=== PATIENT | male | born 1975 | race Caucasian/White ===

== ENCOUNTER 2017-08-10 19:42 | Emergency (ER) | payer OTHER, SELFPAY ==
[2017-08-10 21:59] LABS: Absolute Lymphocytes (CBC) 2.3 K/uL (0.7-4.9); Absolute Monocytes 0.8 K/uL (0.1-1.3); Absolute Neutrophil 3.9 K/uL (1.8-8.0); Basophils % 0.8 % (0-1.3); Eosinophils % 0.9 % (0-4.4); Hematocrit 40.5 % (39.6-49.0); Lymphocytes % 32.3 % (15.3-44.8); MCH 30.2 pg (27.0-35.0); MCV 85.3 fL (80-100); MPV 9.1 fL (7.6-11.3); Monocytes % 11.1 % (3.3-12.3); RBC Red Blood Cell Count 4.74 M/uL (4.33-5.43)
[2017-08-10 22:06] LABS: Potassium 3.9 mEq/L (3.6-5.0)
[2017-08-10] MEDS ORDERED: CLINDAMYCIN 600MG/D5W 600 MG/50 ML BAG IV ONE (22:09)
--- NOTE | 2017-08-10 22:31 | EDPHYS ---
Physician Documentation [facility] Name: Fer Daugherty Jr Age: 41 yrs Sex: Male : 1975 Arrival Date: 08/10/2017 Time: 19:54 Bed 6 Private MD: None, None ED Physician Benny Noe HPI: 08/11 06:13 This 41 yrs old Male presents to ER via Ambulatory with complaints of tw4 Infections to left elbow. 06:13 The patient presents with cellulitis of the left elbow and palmar aspect of left tw4 forearm. Description: The affected area is moderate sized, confluent. Onset: The symptoms/episode began/occurred today. Possible cause(s): unknown. Associated signs and symptoms: The patient has no apparent associated signs or symptoms. Modifying factors: the symptoms are alleviated by nothing, the symptoms are aggravated by nothing. Severity of symptoms: At their worst the symptoms were moderate, in the emergency department the symptoms are unchanged. The patient has not experienced similar symptoms in the past. Historical: - Allergies: 08/10 19:58 Morphine; fc - Home Meds: 19:58 metformin 1,000 mg Oral tab 1 tab 2 times per day [Active]; fc - PMHx: 19:58 Diabetes - NIDDM; fc - PSHx: 19:58 ankle surg; hip surg; right shoulder surg; right clavical surg; Appendectomy; fc - Immunization history:: Last tetanus immunization: up to date. - Social history:: Smoking status: Patient/guardian denies using tobacco, Patient uses alcohol, on a daily basis. Patient/guardian denies using street drugs. - Ebola Screening: : Patient negative for fever greater than or equal to 101.5 degrees Fahrenheit, and additional compatible Ebola Virus Disease symptoms Patient denies exposure to infectious person Patient denies travel to an Ebola-affected area in the 21 days before illness onset. ROS: 08/11 06:13 Constitutional: Negative for fever, chills, and weight loss, Cardiovascular: Negative tw4 for chest pain, palpitations, and edema, Respiratory: Negative for shortness of breath, cough, wheezing, and pleuritic chest pain, Abdomen/GI: Negative for abdominal pain, nausea, vomiting, diarrhea, and constipation. Neuro: Negative for headache, weakness, numbness, tingling, and seizure. MS/extremity: Positive for erythema, pain, swelling. Exam: 06:13 Constitutional: This is a well developed, well nourished patient who is awake, alert, tw4 and in no acute distress. Chest/axilla: Normal chest wall appearance and motion. Nontender with no deformity. No lesions are appreciated. Cardiovascular: Regular rate and rhythm with a normal S1 and S2. No gallops, murmurs, or rubs. Normal PMI, no JVD. No pulse deficits. Respiratory: Lungs have equal breath sounds bilaterally, clear to auscultation and percussion. No rales, rhonchi or wheezes noted. No increased work of breathing, no retractions or nasal flaring. Abdomen/GI: Soft, non-tender, with normal bowel sounds. No distension or tympany. No guarding or rebound. No evidence of tenderness throughout. 06:13 Musculoskeletal/extremity: Extremities: erythema, pain, swelling, tenderness, ROM: no acute changes, Circulation is intact in all extremities. Vital Signs: 08/10 19:58 BP 140 / 85; Pulse 67; Resp 18; Temp 98(O); Pulse Ox 98% on R/A; Weight 112.49 kg (R); fc Height 6 ft. 2 in. (187.96 cm) (R); Pain 5/10; 21:30 BP 112 / 64; Pulse 65; Resp 16; Pulse Ox 98% on R/A; lp1 22:49 BP 124 / 78; Pulse 65; Resp 16; Pulse Ox 98% on R/A; lp1 22:53 BP 124 / 78; Pulse 65; Resp 18; Temp 98; Pulse Ox 98% on R/A; ak1 19:58 Body Mass Index 31.84 (112.49 kg, 187.96 cm) MDM: 20:49 Patient medically screened. tw4 08/11 06:13 Differential diagnosis: cellulitis. Data reviewed: vital signs, nurses notes. tw4 Counseling: I had a detailed discussion with the patient and/or guardian regarding: the historical points, exam findings, and any diagnostic results supporting the discharge/admit diagnosis. Special discussion: I discussed with the patient/guardian in detail that at this point there is no indication for admission to the hospital. It is understood, however, that if the symptoms persist or worsen the patient needs to return immediately for re-evaluation. 08/10 21:25 Order name: Basic Metabolic Panel tw4 08/10 21:25 Order name: CBC with Diff 4 08/10 21:25 Order name: Lactate 4 08/10 21:25 Order name: Accucheck; Complete Time: 21:58 tw4 08/10 21:25 Order name: Cardiac monitoring; Complete Time: 21:58 tw4 08/10 21:25 Order name: IV Saline Lock - Large Bore; Complete Time: 21:58 tw4 08/10 21:25 Order name: Labs collected and sent; Complete Time: 21:58 tw4 08/10 21:25 Order name: O2 Per Protocol; Complete Time: 21:29 tw4 08/10 21:25 Order name: O2 Sat Monitoring; Complete Time: :29 tw4 Administered Medications: 08/10 22:12 Drug: Cleocin 600 mg Route: IVPB; Infused Over: 30 mins; Site: right hand; lp1 22:53 Follow up: IV Status: Completed infusion ak1 Point of Care Testing: Blood Glucose: 21:46 Blood Glucose: 242 mg/dL; lp1 Ranges: Critical Glucose Levels:Adult <50 mg/dl or >400 mg/dl <40 mg/dl or >180 mg/dl Disposition: 08/10/17 22:31 Discharged to Home. Impression: Cellulitis of left upper limb. - Condition is Stable. - Discharge Instructions: Cellulitis, [id number]. - Prescriptions for Cleocin 300 mg Oral Capsule - take 1 capsule by ORAL route every 6 hours for 10 days; 40 capsule. - Medication Reconciliation Form, Thank You Letter, Antibiotic Education, Prescription Opioid Use form. - Follow up: Private Physician; When: As needed; Reason: Recheck today's complaints, Continuance of care, Re-evaluation by your physician. - Problem is new. - Symptoms have improved. Signatures: Dispatcher [employer] EDMS Janice Pizano RN Olinda Persaud RN RN lp1 Karen Valentino RN RN ak1 Benny Noe MD MD tw4 Corrections: (The following items were deleted from the chart) 21:29 21:25 EKG - Nurse/Tech ordered. tw4 lp1 21:48 21:25 AMYLASE, SERUM+C.LAB.BRZ ordered. EDMS EDMS 21:48 21:25 C-REACTIVE PROTEIN+C.LAB.BRZ ordered. EDMS EDMS 21:48 21:25 CKMB+C.LAB.BRZ ordered. EDMS EDMS 21:48 21:25 CREATINE PHOSPHOKINASE+C.LAB.BRZ ordered. EDMS EDMS 21:48 21:25 HEPATIC FUNCTION+C.LAB.BRZ ordered. EDMS EDMS 21:48 21:25 LIPASE+C.LAB.BRZ ordered. EDMS EDMS 21:48 21:25 TROPONIN (EMERG DEPT USE ONLY)+C.LAB.BRZ ordered. EDMS EDMS 21:49 21:25 BNP+C.LAB.BRZ ordered. EDMS EDMS 21:49 21:25 WESTERGREN SEDRATE+H.LAB.BRZ ordered. EDMS EDMS 22:48 21:25 Urine Dipstick-Ancillary ordered. tw4 lp1 23:12 22:31 08/10/2017 22:31 Discharged to Home. Impression: Cellulitis of left upper limb. ak1 Condition is Stable. Forms are Medication Reconciliation Form, Thank You Letter, Antibiotic Education, Prescription Opioid Use. Follow up: Private Physician; When: As needed; Reason: Recheck today's complaints, Continuance of care, Re-evaluation by your physician. Problem is new. Symptoms have improved. tw4
--- NOTE | 2017-08-10 22:31 | ER ---
Nurse's Notes [facility] Name: Fer Daugherty Jr Age: 41 yrs Sex: Male : 1975 Arrival Date: 08/10/2017 Time: 19:54 Bed 6 Private MD: None, None Diagnosis: Cellulitis of left upper limb Presentation: 08/10 19:55 Presenting complaint: Patient states: that he has swelling and pain to left elbow that fc started 1 week ago. Now he has noticed a few pustules . Transition of care: patient was not received from another setting of care. Onset of symptoms was August 03, 2016. Risk Assessment: Do you want to hurt yourself or someone else? Patient reports no desire to harm self or others. Care prior to arrival: None. 19:55 Method Of Arrival: Ambulatory 19:55 Acuity: MARILY 4 fc 22:49 Initial Sepsis Screen: Does the patient meet any 2 criteria? No. Patient's initial lp1 sepsis screen is negative. Does the patient have a suspected source of infection? No. Patient's initial sepsis screen is negative. Triage Assessment: 20:00 General: Appears uncomfortable, well groomed, Behavior is calm, cooperative, fc appropriate for age. Pain: Complains of pain in left elbow Pain currently is 5 out of 10 on a pain scale. at worst was 10 out of 10 on a pain scale. Quality of pain is described as aching, pressure, throbbing, Pain began 1 week ago Is continuous, Aggravated by increased activity, repositioning, touching area. EENT: No deficits noted. Neuro: Level of Consciousness is awake, alert, obeys commands, Oriented to person, place, time, situation. Cardiovascular: No deficits noted. Respiratory: No deficits noted. GI: No deficits noted. : No deficits noted. Derm: Skin is pink, warm \T\ dry. Abscess located on left elbow is hot to touch, is red, is raised. Musculoskeletal: Circulation, motion, and sensation intact. Capillary refill < 3 seconds, Range of motion: intact in all extremities, Swelling present in left elbow Reports pain in left elbow. Historical: - Allergies: 19:58 Morphine; fc - Home Meds: 19:58 metformin 1,000 mg Oral tab 1 tab 2 times per day [Active]; fc - PMHx: 19:58 Diabetes - NIDDM; fc - PSHx: 19:58 ankle surg; hip surg; right shoulder surg; right clavical surg; Appendectomy; fc - Immunization history:: Last tetanus immunization: up to date. - Social history:: Smoking status: Patient/guardian denies using tobacco, Patient uses alcohol, on a daily basis. Patient/guardian denies using street drugs. - Ebola Screening: : Patient negative for fever greater than or equal to 101.5 degrees Fahrenheit, and additional compatible Ebola Virus Disease symptoms Patient denies exposure to infectious person Patient denies travel to an Ebola-affected area in the 21 days before illness onset. Screenin:49 Abuse screen: Denies threats or abuse. Denies injuries from another. Nutritional lp1 screening: No deficits noted. Tuberculosis screening: No symptoms or risk factors identified. Fall Risk None identified. Assessment: 21:46 General: Appears in no apparent distress. Behavior is calm, cooperative, appropriate lp1 for age. Pain: Complains of pain in left elbow Pain currently is 7 out of 10 on a pain scale. Aggravated by movement. Neuro: Level of Consciousness is awake, alert, obeys commands, Oriented to person, place, time, situation. Cardiovascular: Patient's skin is warm and dry. Respiratory: Respiratory effort is even, unlabored. GI: No signs and/or symptoms were reported involving the gastrointestinal system. : No signs and/or symptoms were reported regarding the genitourinary system. EENT: No signs and/or symptoms were reported regarding the EENT system. Derm: Wound noted Wound is Redness, swelling to left elbow. Musculoskeletal: Circulation, motion, and sensation intact. 22:49 Reassessment: Patient appears in no apparent distress at this time. No changes from lp1 previously documented assessment. Patient and/or family updated on plan of care and expected duration. Pain level reassessed. Vital Signs: 19:58 BP 140 / 85; Pulse 67; Resp 18; Temp 98(O); Pulse Ox 98% on R/A; Weight 112.49 kg (R); Height 6 ft. 2 in. (187.96 cm) (R); Pain 5/10; 21:30 BP 112 / 64; Pulse 65; Resp 16; Pulse Ox 98% on R/A; lp1 22:49 BP 124 / 78; Pulse 65; Resp 16; Pulse Ox 98% on R/A; lp1 22:53 BP 124 / 78; Pulse 65; Resp 18; Temp 98; Pulse Ox 98% on R/A; ak1 19:58 Body Mass Index 31.84 (112.49 kg, 187.96 cm) ED Course: 19:54 Patient arrived in ED. 19:55 None, None is Private Physician. 19:56 Triage completed. 20:00 Arm band placed on Patient placed in waiting room, Patient notified of wait time. 20:49 Benny Noe MD is Attending Physician. tw4 21:17 Olinda Waller, RN is Primary Nurse. lp1 21:40 Inserted saline lock: 22 gauge in right hand, using aseptic technique. Blood collected. lp1 21:59 Patient has correct armband on for positive identification. Pulse ox on. NIBP on. lp1 22:50 No provider procedures requiring assistance completed. lp1 23:07 IV discontinued, intact, bleeding controlled, No redness/swelling at site. Pressure ak1 dressing applied. Administered Medications: 22:12 Drug: Cleocin 600 mg Route: IVPB; Infused Over: 30 mins; Site: right hand; lp1 22:53 Follow up: IV Status: Completed infusion ak1 Point of Care Testing: Blood Glucose: 21:46 Blood Glucose: 242 mg/dL; lp1 Ranges: Outcome: 22:31 Discharge ordered by . tw4 23:07 Discharged to home ambulatory. ak1 23:07 Condition: good 23:07 Discharge instructions given to patient, Instructed on discharge instructions, follow up and referral plans. no drinking with medication, no driving heavy equipment, medication usage, wound care, Demonstrated understanding of instructions, follow-up care, medications, wound care, Prescriptions given X 1. 23:12 Patient left the ED. ak1 Signatures: Janice Pizano RN MANE Olinda Waller, RN RN 1 Karen Valentino RN RN ak1 Benny Noe MD MD 4
== END 2017-08-10 23:12 | disposition home or self-care (01) ==
LOC: ER 19:42
DX: L03.114 Cellulitis of left upper limb (principal); E11.9 Type 2 diabetes mellitus without complications; Z88.6 Allergy status to analgesic agent
CPT/HCPCS: 36415; 80048; 82962; 83605; 85025; 96365; 99284

== ENCOUNTER 2017-12-03 23:12 | Emergency (ER) | payer SELFPAY ==
[2017-12-03] MEDS ORDERED: LIDOCAINE 1% MPF 30 ML VIAL ONE (23:49)
[2017-12-03] MEDS ORDERED: KETOROLAC 30 MG/ML INJ ONE (23:53)
[2017-12-04] LABS: Absolute Lymphocytes (CBC) 1.7 K/uL (0.7-4.9); Absolute Monocytes 0.8 K/uL (0.1-1.3); Absolute Neutrophil 3.9 K/uL (1.8-8.0); Basophils % 0.3 % (0-1.3); Eosinophils % 0.6 % (0-4.4); Hematocrit 39.5 % (39.6-49.0); Lymphocytes % 26.5 % (15.3-44.8); MCH 31.4 pg (27.0-35.0); MCV 89.6 fL (80-100); Monocytes % 12.6 % (3.3-12.3); RBC Red Blood Cell Count 4.41 M/uL (4.33-5.43)
[2017-12-04 00:22] LABS: Potassium 3.9 mmol/L (3.5-5.1)
[2017-12-04] MEDS ORDERED: INSULIN -REGULAR HUMAN 50 UNIT/0.5 ML ML ONE (00:46)
[2017-12-04] MEDS ORDERED: BUPIVACAINE 0.5% PF 10 ML VIAL ONE (00:49)
[2017-12-04] MEDS ORDERED: HYDROCODONE/APAP 7.5/325 MG TAB ONE (02:29)
[2017-12-04] MEDS ORDERED: CLINDAMYCIN 900MG/D5W 900 MG/50 ML BAG IV ONE (02:30)
[2017-12-04] MEDS ORDERED: SMZ./TMP. 800/160 MG TABLET ONE (02:30)
--- NOTE | 2017-12-04 02:35 | EDPHYS ---
Physician Documentation [facility] Name: Fer Daugherty Jr Age: 42 yrs Sex: Male : 1975 Arrival Date: 12/03/2017 Time: 23:15 Bed 18 Private MD: ED Physician Bharat Aaron HPI: 12/03 23:35 This 42 yrs old Male presents to ER via Ambulatory with complaints of cp INFECTION IN LEG. 23:35 The patient presents with an abscess, small, swelling, tenderness. The complaints cp affect the lateral aspect of left calf. Context: resulted from possible ant bite. Onset: The symptoms/episode began/occurred 2 day(s) ago. Associated signs and symptoms: Pertinent positives: calf tenderness, swelling, warmth, Pertinent negatives fever, numbness. Treatment prior to arrival includes: prescription medications, oral Keflex. Patient reports being prescribed Keflex today and taking 2 doses. Severity of symptoms: in the emergency department the symptoms are unchanged. Historical: - Allergies: 23:29 Morphine; tl2 - Home Meds: 23:29 metformin 1,000 mg Oral tab 1 tab 2 times per day [Active]; tl2 - PMHx: 23:29 Diabetes - NIDDM; tl2 - PSHx: 23:29 Appendectomy; tl2 - Immunization history:: Adult Immunizations up to date. - Social history:: Smoking status: Patient/guardian denies using tobacco. - Ebola Screening: : No symptoms or risks identified at this time. ROS: 23:40 Constitutional: Negative for body aches, chills, fever, poor PO intake. cp 23:40 Eyes: Negative for injury, pain, redness, and discharge. cp 23:40 ENT: Negative for drainage from ear(s), ear pain, sore throat, difficulty swallowing, difficulty handling secretions. 23:40 Cardiovascular: Negative for chest pain, edema, palpitations. 23:40 Respiratory: Negative for cough, shortness of breath, wheezing. 23:40 Abdomen/GI: Negative for abdominal pain, nausea, vomiting, and diarrhea, black/tarry stool, rectal bleeding. 23:40 Skin: Positive for abscess, cellulitis, of the lateral aspect of left calf. 23:40 Neuro: Negative for altered mental status, headache, weakness. 23:40 All other systems are negative. Exam: 23:45 Constitutional: The patient appears in no acute distress, alert, awake, cp non-diaphoretic, non-toxic, well developed, well nourished. 23:45 Head/Face: Normocephalic, atraumatic. cp 23:45 Eyes: Periorbital structures: appear normal, Conjunctiva: normal, no exudate, no injection, Sclera: no appreciated abnormality, Lids and lashes: appear normal, bilaterally. 23:45 ENT: External ear(s): are unremarkable, Nose: is normal, Mouth: Lips: moist, Oral mucosa: pink and intact, moist, Posterior pharynx: is normal, airway is patent, no erythema, no exudate. 23:45 Chest/axilla: Inspection: normal, Palpation: is normal, no crepitus, no tenderness. 23:45 Cardiovascular: Rate: normal, Rhythm: regular, Edema: is not appreciated. 23:45 Respiratory: the patient does not display signs of respiratory distress, Respirations: normal, no use of accessory muscles, no retractions, no splinting, no tachypnea, labored breathing, is not present, Breath sounds: are clear throughout, no decreased breath sounds, no stridor, no wheezing. 23:45 Abdomen/GI: Inspection: abdomen appears normal, Palpation: abdomen is soft and non-tender, in all quadrants. 23:45 Skin: abscess, that is small, with surrounding cellulitis, that is moderate. 23:45 Neuro: Orientation: to person, place \T\ time. Mentation: lucid, able to follow commands, Cerebellar function: is grossly normal, Motor: moves all fours, strength is normal, Sensation: no obvious gross deficits. Vital Signs: 23:29 BP 162 / 96; Pulse 81; Resp 18; Temp 97.9(O); Pulse Ox 95% on R/A; Weight 113.4 kg; tl2 Height 6 ft. 2 in. (187.96 cm); Pain 10; 12/04 00:23 BP 145 / 88; Pulse 83; Resp 18; Pulse Ox 96% on R/A; tl2 01:56 BP 131 / 78; Pulse 78; Resp 18; Pulse Ox 98% on R/A; tl2 03:26 BP 108 / 76; Pulse 73; Resp 20; Pulse Ox 99% on R/A; tl2 12/03 23:29 Body Mass Index 32.10 (113.40 kg, 187.96 cm) tl2 Procedures: 02:30 I \T\ D: Incision and drainage was performed for an abscess of the lateral aspect of left cp calf Prepped with Betadine, Anesthetized with 5 ccs of 50/50 mixture 1% lidocaine w/o epi and 0.5% marcaine. Incised with #11 blade. Drained small amount purulent fluid. Packed with iodoform gauze, Dressing: sterile 4x4 gauze, the patient tolerated the procedure well. MDM: 12/03 23:25 Patient medically screened. 12/04 00:00 Differential diagnosis: abscess, cellulitis, insect bite. 02:33 Data reviewed: vital signs, nurses notes, lab test result(s), radiologic studies, cp ultrasound, and as a result, I will discharge patient. 02:33 Counseling: I had a detailed discussion with the patient and/or guardian regarding: the cp historical points, exam findings, and any diagnostic results supporting the discharge/admit diagnosis, lab results, radiology results, the need for outpatient follow up, a family practitioner, to return to the emergency department if symptoms worsen or persist or if there are any questions or concerns that arise at home. Response to treatment: the patient's symptoms have markedly improved after treatment, and as a result, I will discharge patient. 12/03 23:34 Order name: CBC with Diff; Complete Time: 00:16 12/04 00:16 Interpretation: Normal except: HCT 39.5; MCV 89.6; MN% 12.6. 12/03 23:34 Order name: BMP; Complete Time: 00:27 12/03 23:34 Order name: Wound Culture 12/03 23:34 Order name: US Extremity Venous Unilateral Ltd; Complete Time: 01:30 12/05 01:30 Interpretation: Report reviewed. 12/03 23:34 Order name: IV; Complete Time: 23:53 cp Administered Medications: 12/03 23:53 Drug: TORadol 30 mg Route: IVP; Site: right wrist; tl2 12/04 00:30 Follow up: Response: No adverse reaction; Pain is decreased tl2 01:00 Drug: Insulin Regular Human 10 units {Co-Signature: kr2 (Crystal Briones RN).} Route: IVP; tl2 Site: right wrist; 02:11 Follow up: Response: No adverse reaction; Blood sugar is lowered tl2 02:08 Drug: Lidocaine-Epinephrine -1%: (1:100,000) 5 ml Volume: 20 ml; Route: Infiltration; tl2 02:08 Drug: Marcaine (0.5 %) 5 ml Volume: 10 ml; Route: Infiltration; tl2 02:37 Drug: Clindamycin 900 mg Route: IVPB; Infused Over: 30 mins; Site: right antecubital; tl2 03:29 Follow up: IV Status: Completed infusion; IV Intake: 50ml tl2 02:37 Drug: Hydrocodone-Acetaminophen (7.5 mg-325 mg) 1 tabs Route: PO; tl2 03:29 Follow up: Response: No adverse reaction tl2 02:37 Drug: Bactrim (160 mg-800 mg (DS) 1 tablet Route: PO; tl2 03:29 Follow up: Response: No adverse reaction tl2 Point of Care Testing: Blood Glucose: 02:11 Blood Glucose: 277 mg/dL; tl2 Ranges: Critical Glucose Levels:Adult <50 mg/dl or >400 mg/dl <40 mg/dl or >180 mg/dl Disposition: 07:15 Co-signature as Attending Physician, Bharat Aaron MD I agree with the assessment and rj plan of care. Disposition: 12/04/17 02:34 Discharged to Home. Impression: Cutaneous abscess of left lower limb, Cellulitis of left lower limb. - Condition is Stable. - Discharge Instructions: Skin Abscess, Cellulitis, Adult, Incision and Drainage. - Prescriptions for Clindamycin HCl 300 mg Oral Capsule - take 1 capsule by ORAL route every 6 hours for 10 days; 40 capsule. Tylenol- Codeine #3 300-30 mg Oral Tablet - take 2 tablets by ORAL route every 6 hours As needed; 15 tablet. Bactrim DS 800- 160 mg Oral Tablet - take 1 tablet by ORAL route every 12 hours for 10 days; 20 tablet. - Medication Reconciliation Form, Thank You Letter, Antibiotic Education, Prescription Opioid Use, Work release form form. - Follow up: Private Physician; When: 48 Hours; Reason: Wound Recheck. - Problem is new. - Symptoms have improved. Signatures: Dispatcher [employer] Bharat Medina MD MD cha Page, Corey, PA PA cp Knox, Taylor, RN RN tl2 Crystal Briones RN kr2 Corrections: (The following items were deleted from the chart) 03:30 02:34 12/04/2017 02:34 Discharged to Home. Impression: Cutaneous abscess of left lower tl2 limb; Cellulitis of left lower limb. Condition is Stable. Forms are Medication Reconciliation Form, Thank You Letter, Antibiotic Education, Prescription Opioid Use. Follow up: Private Physician; When: 48 Hours; Reason: Wound Recheck. Problem is new. Symptoms have improved. cp
--- NOTE | 2017-12-04 02:35 | ER ---
Nurse's Notes [facility] Name: Fer Daugherty Jr Age: 42 yrs Sex: Male : 1975 Arrival Date: 12/03/2017 Time: 23:15 Bed 18 Private MD: Diagnosis: Cutaneous abscess of left lower limb;Cellulitis of left lower limb Presentation: 12/03 23:24 Presenting complaint: Patient states: I noticed a bite on my left leg on Thursday and tl2 today it's red and swollen. Quarter sized abscess noted to left calf, red and warm to touch. Transition of care: patient was not received from another setting of care. Onset of symptoms was December 01, 2017. Risk Assessment: Do you want to hurt yourself or someone else? Patient reports no desire to harm self or others. Initial Sepsis Screen: Does the patient meet any 2 criteria? No. Patient's initial sepsis screen is negative. Does the patient have a suspected source of infection? No. Patient's initial sepsis screen is negative. Care prior to arrival: None. 23:24 Method Of Arrival: Ambulatory tl2 23:24 Acuity: MARILY 4 tl2 Triage Assessment: 23:29 General: Appears in no apparent distress. uncomfortable, Behavior is calm, cooperative, tl2 appropriate for age. Pain: Complains of pain in left calf Pain currently is 7 out of 10 on a pain scale. Neuro: Level of Consciousness is awake, alert, obeys commands, Oriented to person, place, time, situation. Cardiovascular: Denies chest pain. Respiratory: Airway is patent Respiratory effort is even, unlabored, Respiratory pattern is regular, symmetrical. Derm: Skin is pink, warm \T\ dry. Abscess located on left calf is nickel sized, has no drainage, is hot to touch, is red, is raised, Reports pain that is 7 out of 10 on a pain scale. Historical: - Allergies: 23:29 Morphine; tl2 - Home Meds: 23:29 metformin 1,000 mg Oral tab 1 tab 2 times per day [Active]; tl2 - PMHx: 23:29 Diabetes - NIDDM; tl2 - PSHx: 23:29 Appendectomy; tl2 - Immunization history:: Adult Immunizations up to date. - Social history:: Smoking status: Patient/guardian denies using tobacco. - Ebola Screening: : No symptoms or risks identified at this time. Screenin:32 Abuse screen: Denies threats or abuse. Nutritional screening: No deficits noted. tl2 Tuberculosis screening: No symptoms or risk factors identified. Fall Risk None identified. Assessment: 23:29 General: see triage assessment. tl2 12/04 00:30 Reassessment: Patient appears in no apparent distress at this time. Patient and/or tl2 family updated on plan of care and expected duration. Pain level reassessed. Patient is alert, oriented x 3, equal unlabored respirations, skin warm/dry/pink. 01:30 Reassessment: Patient appears in no apparent distress at this time. Patient and/or tl2 family updated on plan of care and expected duration. Pain level reassessed. Patient is alert, oriented x 3, equal unlabored respirations, skin warm/dry/pink. 02:30 Reassessment: Patient appears in no apparent distress at this time. Patient and/or tl2 family updated on plan of care and expected duration. Pain level reassessed. Patient is alert, oriented x 3, equal unlabored respirations, skin warm/dry/pink. 03:26 Reassessment: Patient appears in no apparent distress at this time. Patient and/or tl2 family updated on plan of care and expected duration. Pain level reassessed. Patient is alert, oriented x 3, equal unlabored respirations, skin warm/dry/pink. Pt verbalized understanding of discharge instructions, need for follow up and prescription usage and wound care. Vital Signs: 12/03 23:29 BP 162 / 96; Pulse 81; Resp 18; Temp 97.9(O); Pulse Ox 95% on R/A; Weight 113.4 kg; tl2 Height 6 ft. 2 in. (187.96 cm); Pain 7/10; 12/04 00:23 BP 145 / 88; Pulse 83; Resp 18; Pulse Ox 96% on R/A; tl2 01:56 BP 131 / 78; Pulse 78; Resp 18; Pulse Ox 98% on R/A; tl2 03:26 BP 108 / 76; Pulse 73; Resp 20; Pulse Ox 99% on R/A; tl2 12/03 23:29 Body Mass Index 32.10 (113.40 kg, 187.96 cm) 2 ED Course: 12/03 23:15 Patient arrived in ED. es 23:24 Abad, Hannah, MANE is Primary Nurse. tl2 23:25 Bharat Kaye PA is PHCP. cp 23:25 Bharat Aaron MD is Attending Physician. cp 23:27 Triage completed. tl2 23:29 Arm band placed on right wrist. tl2 23:32 Patient has correct armband on for positive identification. Bed in low position. Call tl2 light in reach. Side rails up X 1. 23:45 Inserted saline lock: 20 gauge in right wrist, using aseptic technique. Blood collected.tl2 12/04 00:25 Notified Nurse Practitioner and/or Physician [employer] Straightener of a critical lab result(s), fc glucose 434. 00:52 US Extremity Venous Unilateral Ltd In Process Unspecified. EDMS 02:15 Assist provider with I \T\ D: of an abscess on right abscess on calf Set up I\T\D tray. tl 2 Performed by Bharat BRADY Culture sent to lab. Wound packed. Dressing with ABD pad, Patient tolerated well. 03:26 IV discontinued, intact, bleeding controlled, No redness/swelling at site. Pressure tl2 dressing applied. Administered Medications: 12/03 23:53 Drug: TORadol 30 mg Route: IVP; Site: right wrist; tl2 12/04 00:30 Follow up: Response: No adverse reaction; Pain is decreased tl2 01:00 Drug: Insulin Regular Human 10 units {Co-Signature: kr2 (Crystal Briones RN).} Route: IVP; tl2 Site: right wrist; 02:11 Follow up: Response: No adverse reaction; Blood sugar is lowered tl2 02:08 Drug: Lidocaine-Epinephrine -1%: (1:100,000) 5 ml Volume: 20 ml; Route: Infiltration; tl2 02:08 Drug: Marcaine (0.5 %) 5 ml Volume: 10 ml; Route: Infiltration; tl2 02:37 Drug: Clindamycin 900 mg Route: IVPB; Infused Over: 30 mins; Site: right antecubital; tl2 03:29 Follow up: IV Status: Completed infusion; IV Intake: 50ml tl2 02:37 Drug: Hydrocodone-Acetaminophen (7.5 mg-325 mg) 1 tabs Route: PO; tl2 03:29 Follow up: Response: No adverse reaction tl2 02:37 Drug: Bactrim (160 mg-800 mg (DS) 1 tablet Route: PO; tl2 03:29 Follow up: Response: No adverse reaction tl2 Point of Care Testing: Blood Glucose: 02:11 Blood Glucose: 277 mg/dL; tl2 Ranges: Intake: 03:29 IV: 50ml; Total: 50ml. tl2 Outcome: 02:34 Discharge ordered by . cp 03:29 Discharged to home ambulatory, with family. tl2 03:29 Condition: stable 03:29 Discharge instructions given to patient, Instructed on discharge instructions, follow up and referral plans. medication usage, wound care, Demonstrated understanding of instructions, follow-up care, medications, wound care, Prescriptions given X 3. 03:30 Patient left the ED. tl2 Addendum: 12/07/2017 09:27 Addendum: Culture Results: Positive wound culture. No further action required. Bacteria s s sensitive to prescribed antibiotic. Signatures: Dispatcher [employer] Afua Heck Felicia, RN RN fc Smirch, Shelby, RN RN ss Page, Corey, PA PA cp Knox, Taylor, RN RN tl2 Crystal Briones RN kr2 Corrections: (The following items were deleted from the chart) 12/04 00:23 09 23:29 BP 145 / 88; Pulse 83bpm; Resp 18bpm; Pulse Ox 96% RA; tl2 tl2
[2017-12-04 03:35] VITALS: TEMP 97.9
[2017-12-04 03:39] VITALS: BP 108/76; O2SAT 99
--- NOTE | 2017-12-04 08:20 | RAD REPORT ---
EXAM DESCRIPTION: US - Extremity Venous Uni Ltd - 12/04/2017 12:54 am CLINICAL HISTORY: Left leg pain and swelling, insect bite COMPARISON: None. TECHNIQUE: Real-time sonographic evaluation of the left lower extremity deep venous system was perfo rmed. FINDINGS: Normal compressibility, flow augmentation, phasic flow and spontaneous flow are identified in the left lower extremity common femoral, superficial femoral, popliteal and posterior tibial vein s. No intraluminal filling defects seen. Soft tissues are edematous at the insect bite site there is an approximately 11 millimeter area of sl ightly diminished echogenicity. This is likely focal inflammatory tissue. This is not yet seen as a d rainable fluid collection. IMPRESSION: Approximately 11 millimeter focal inflammatory focus in the subcutaneous fatty tissues a t the site of insect bite. Surrounding edema is present. This is probably not yet a drainable fluid c ollection. No DVT.
== END 2017-12-04 03:30 | disposition home or self-care (01) ==
LOC: ER 23:12
PROC: 0J9P0ZZ Drainage of Left Lower Leg Subcutaneous Tissue and Fascia, Open Approach (ICD-10-PCS; principal; 2017-12-04)
DX: L03.116 Cellulitis of left lower limb (principal); E11.9 Type 2 diabetes mellitus without complications; Z88.5 Allergy status to narcotic agent
CPT/HCPCS: 36415; 80048; 82962; 85025; 87070; 87077; 87186; 87205; 93971; 96365; 96375; 99284

== ENCOUNTER 2017-12-05 21:33 | Observation (INO) | payer SELFPAY ==
[2017-12-05] MEDS ORDERED: NA CHLORIDE 0.9% 1,000 ML ONE (22:22)
[2017-12-05] MEDS ORDERED: FENTANYL CITR 100 MCG/2 ML ONE (22:22)
[2017-12-05 22:44] LABS: Absolute Lymphocytes (CBC) 2.1 K/uL (0.7-4.9); Absolute Monocytes 0.6 K/uL (0.1-1.3); Basophils % 0.7 % (0-1.3); Eosinophils % 1.1 % (0-4.4); Hematocrit 41.3 % (39.6-49.0); Lymphocytes % 43.9 % (15.3-44.8); MCH 31.1 pg (27.0-35.0); MCV 89.8 fL (80-100); Monocytes % 11.9 % (3.3-12.3)
[2017-12-05 22:47] LABS: Protime INR 0.85
[2017-12-05 23:26] LABS: Albumin 3.6 g/dL (3.4-5.0); Bilirubin Direct 0.1 mg/dL (0-0.2); Bilirubin Total 0.4 mg/dL (0.2-1.0); Magnesium 1.9 mg/dL (1.8-2.4); Potassium 4.3 mmol/L (3.5-5.1); Protein, Total 7.2 g/dL (6.4-8.2)
--- NOTE | 2017-12-06 00:08 | ER ---
Nurse's Notes [facility] Name: Fer Daugherty Jr Age: 42 yrs Sex: Male : 1975 Arrival Date: 12/05/2017 Time: 21:36 Bed 13 Private MD: Diagnosis: Cellulitis of left lower limb Presentation: 12/05 21:40 Presenting complaint: Patient states: Here to have packing removed from wound to left aj posterior leg that was placed 2 days ago. Transition of care: patient was not received from another setting of care. Onset of symptoms was December 03, 2017. Risk Assessment: Do you want to hurt yourself or someone else? Patient reports no desire to harm self or others. Initial Sepsis Screen: Does the patient meet any 2 criteria? No. Patient's initial sepsis screen is negative. Does the patient have a suspected source of infection? No. Patient's initial sepsis screen is negative. Care prior to arrival: None. 21:40 Method Of Arrival: Ambulatory aj 21:40 Acuity: MARILY 4 aj Triage Assessment: 21:41 General: Appears in no apparent distress. comfortable, Behavior is calm, cooperative, aj appropriate for age. Pain: Denies pain. Neuro: Level of Consciousness is awake, alert, obeys commands, Oriented to person, place, time, situation, Appropriate for age. Respiratory: Airway is patent Respiratory effort is even, unlabored, Respiratory pattern is regular, symmetrical. Derm: Skin is intact, is healthy with good turgor, Skin is pink, warm \\T\\ dry. normal, Wound noted left calf Redness and inflammation to posterior left calf. Historical: - Allergies: 21:41 Morphine; aj - Home Meds: 21:41 metformin 1,000 mg Oral tab 1 tab 2 times per day [Active]; Bactrim DS Oral [Active]; aj Tylenol #3 Oral [Active]; - PMHx: 21:41 Diabetes - NIDDM; aj - PSHx: 21:41 Appendectomy; shoulder; aj - Immunization history:: Adult Immunizations up to date. - Social history:: Smoking status: Patient/guardian denies using tobacco, Patient uses alcohol, admits to "couple of beers" a day. - Ebola Screening: : Patient negative for fever greater than or equal to 101.5 degrees Fahrenheit, and additional compatible Ebola Virus Disease symptoms Patient denies exposure to infectious person Patient denies travel to an Ebola-affected area in the 21 days before illness onset No symptoms or risks identified at this time. Screenin:00 Abuse screen: Denies threats or abuse. Nutritional screening: No deficits noted. ea Tuberculosis screening: No symptoms or risk factors identified. Fall Risk None identified. Assessment: 21:57 General: Appears in no apparent distress. Behavior is calm, cooperative, appropriate ea for age. Pain: Complains of pain in left calf Pain radiates to left leg Pain currently is 5 out of 10 on a pain scale. Quality of pain is described as pressure. Neuro: Level of Consciousness is awake, alert, obeys commands, Oriented to person, place, time, situation. Cardiovascular: Patient's skin is warm and dry. Respiratory: Airway is patent Respiratory effort is even, unlabored, Respiratory pattern is regular, symmetrical. GI: No signs and/or symptoms were reported involving the gastrointestinal system. : No signs and/or symptoms were reported regarding the genitourinary system. EENT: No signs and/or symptoms were reported regarding the EENT system. Derm: Wound noted left calf Wound is packed wound noted to left calf, area red and warm to touch. 22:30 Reassessment: Patient and/or family updated on plan of care and expected duration. Pain ea level reassessed. Patient is alert, oriented x 3, equal unlabored respirations, skin warm/dry/pink. 23:15 Reassessment: Patient and/or family updated on plan of care and expected duration. Pain ea level reassessed. Patient is alert, oriented x 3, equal unlabored respirations, skin warm/dry/pink. 12/06 00:55 Reassessment: Patient and/or family updated on plan of care and expected duration. Pain ea level reassessed. Patient is alert, oriented x 3, equal unlabored respirations, skin warm/dry/pink. 01:00 Reassessment: Patient and/or family updated on plan of care and expected duration. Pain ea level reassessed. Patient is alert, oriented x 3, equal unlabored respirations, skin warm/dry/pink. 02:14 Reassessment: Patient and/or family updated on plan of care and expected duration. Pain ea level reassessed. Patient is alert, oriented x 3, equal unlabored respirations, skin warm/dry/pink. awaiting on CT results. 03:10 Reassessment: Patient and/or family updated on plan of care and expected duration. Pain ea level reassessed. Patient is alert, oriented x 3, equal unlabored respirations, skin warm/dry/pink. Awaiting on room. 03:36 Reassessment: Patient and/or family updated on plan of care and expected duration. Pain ea level reassessed. Patient is alert, oriented x 3, equal unlabored respirations, skin warm/dry/pink. Report called to Patricia GILLIAM. Vital Signs: 12/05 21:41 BP 148 / 77; Pulse 68; Resp 17; Temp 98.2; Pulse Ox 98% on R/A; Weight 113.4 kg; Height aj 6 ft. 2 in. (187.96 cm); 21:59 BP 158 / 92; Pulse 70; Resp 18; Pulse Ox 97% on R/A; ea 22:55 BP 138 / 76; Pulse 76; Resp 18; Pulse Ox 96% on R/A; ea 23:45 BP 140 / 80; Pulse 72; Resp 18; Pulse Ox 98% ; ea 12/06 01:30 BP 138 / 73; Pulse 70; Resp 18; Pulse Ox 98% ; ea 03:30 BP 142 / 68; Pulse 68; Resp 18; Temp 98(O); Pulse Ox 98% on R/A; Pain 0/10; ea 12/05 21:41 Body Mass Index 32.10 (113.40 kg, 187.96 cm) aj ED Course: 12/05 21:36 Patient arrived in ED. ag3 21:41 Triage completed. aj 21:41 Arm band placed on right wrist. Patient placed in an exam room. aj 21:44 Marian Carver, MANE is Primary Nurse. ea 21:45 Bharat Kaye PA is PHCP. cp 21:45 Bharat Aaron MD is Attending Physician. cp 22:00 Patient has correct armband on for positive identification. Bed in low position. Call ea light in reach. 22:21 Inserted saline lock: 20 gauge in right antecubital area, using aseptic technique. ea Blood collected. 23:09 EKG done, by ED staff, reviewed by Bharat Aaron MD. ds4 12/06 00:06 Gregory Lawson MD is Hospitalizing Provider. cp 01:48 Lower Extremity W/ Cont In Process Unspecified. EDMS 02:56 Gregory Lawson MD is Hospitalizing Provider. cp 03:24 No provider procedures requiring assistance completed. Patient admitted, IV remains in ea place. Administered Medications: 12/05 22:32 Drug: fentaNYL (PF) 25 mcg Route: IVP; Site: right antecubital; ea 12/06 00:10 Follow up: Response: No adverse reaction; Marked relief of symptoms; Pain is decreased ea 12/05 22:33 Drug: NS 0.9% 1000 ml Route: IV; Rate: 1 bolus; Site: right antecubital; ea 12/06 00:30 Follow up: Response: No adverse reaction; IV Status: Completed infusion; IV Intake: ea 1000ml 00:32 Drug: vancoMYCIN 1 grams Route: IVPB; Infused Over: 2 hrs; Site: right antecubital; tl2 03:08 Follow up: Response: No adverse reaction; IV Status: Completed infusion ea 00:33 Drug: NS 0.9% 1000 ml Route: IV; Rate: 125 ml/hr; Site: right antecubital; tl2 03:23 Follow up: Response: No adverse reaction; IV Status: Infusion continued upon transfer ea 00:41 Drug: Insulin Regular Human 10 units {Co-Signature: kt (Marian Carver RN).} Route: IVP; tl2 Site: right antecubital; 02:00 Follow up: Response: No adverse reaction; Blood sugar is lowered; Blood sugar is ea lowered 220 Intake: 00:30 IV: 1000ml; Total: 1000ml. ea Outcome: 00:07 Decision to Hospitalize by Provider. cp 02:57 Decision to Hospitalize by Provider. cp 03:24 Instructed on the need for admit, Demonstrated understanding of instructions. ea 03:36 Admitted to Med/surg accompanied by nurse, room 411, Report called to Patricia GILLIAM ea 03:36 Condition: stable 03:58 Patient left the ED. ea Signatures: Dispatcher [employer] EDLaura Eagle RN RN aj Swanson, Donovan ds4 Bharat Kaye PA PA cp Knox, Taylor, RN RN tl2 Marian Carver RN RN ea Gomez, Alice ag3 Elena Antunez RN ea Corrections: (The following items were deleted from the chart) 12/05 21:43 21:41 Derm: Skin is intact, is healthy with good turgor, Skin is pink, warm \\T\\ dry. aj normal, Wound noted left calf aj
--- NOTE | 2017-12-06 00:08 | EDPHYS ---
Physician Documentation [facility] Name: Fer Daugherty Jr Age: 42 yrs Sex: Male : 1975 Arrival Date: 12/05/2017 Time: 21:36 Bed 13 Private MD: ED Physician Bharat Aaron HPI: 12/05 22:00 This 42 yrs old Male presents to ER via Ambulatory with complaints of GAUZE cp REMOVAL. 22:00 The patient presents with f/u for abscess/cellulitis. The complaints affect the lateral cp aspect of left calf. 22:00 Patient seen in ED by me 2 days ago. I\\T\\D performed and patient placed on oral cp antibiotics. Patient reports increased pain and erythema. Historical: - Allergies: 21:41 Morphine; aj - Home Meds: 21:41 metformin 1,000 mg Oral tab 1 tab 2 times per day [Active]; Bactrim DS Oral [Active]; aj Tylenol #3 Oral [Active]; - PMHx: 21:41 Diabetes - NIDDM; aj - PSHx: 21:41 Appendectomy; shoulder; aj - Immunization history:: Adult Immunizations up to date. - Social history:: Smoking status: Patient/guardian denies using tobacco, Patient uses alcohol, admits to "couple of beers" a day. - Ebola Screening: : Patient negative for fever greater than or equal to 101.5 degrees Fahrenheit, and additional compatible Ebola Virus Disease symptoms Patient denies exposure to infectious person Patient denies travel to an Ebola-affected area in the 21 days before illness onset No symptoms or risks identified at this time. ROS: 22:05 Constitutional: Negative for body aches, chills, fever, poor PO intake. cp 22:05 Eyes: Negative for injury, pain, redness, and discharge. cp 22:05 ENT: Negative for drainage from ear(s), ear pain, sore throat, difficulty swallowing, difficulty handling secretions. 22:05 Cardiovascular: Negative for chest pain, palpitations. 22:05 Respiratory: Negative for cough, shortness of breath, wheezing. 22:05 Abdomen/GI: Negative for abdominal pain, nausea, vomiting, and diarrhea. 22:05 Skin: Positive for abscess, cellulitis, erythema, of the lateral aspect of left calf. 22:05 Neuro: Negative for altered mental status, headache, weakness. 22:05 All other systems are negative. Exam: 22:12 Constitutional: The patient appears in no acute distress, alert, awake, cp non-diaphoretic, non-toxic, well developed, well nourished. 22:12 Head/Face: Normocephalic, atraumatic. cp 22:12 Eyes: Periorbital structures: appear normal, Conjunctiva: normal, no exudate, no injection, Sclera: no appreciated abnormality, Lids and lashes: appear normal, bilaterally. 22:12 ENT: External ear(s): are unremarkable, Nose: is normal, Mouth: Lips: moist, Oral mucosa: pink and intact, moist, Posterior pharynx: is normal, airway is patent, no erythema, no exudate, Voice: is normal. 22:12 Neck: ROM/movement: is normal, is supple, without pain, no range of motions limitations, no nuchal rigidity. 22:12 Chest/axilla: Inspection: normal, Palpation: is normal, no crepitus, no tenderness. 22:12 Cardiovascular: Rate: normal, Rhythm: regular. 22:12 Respiratory: the patient does not display signs of respiratory distress, Respirations: normal, no use of accessory muscles, no retractions, no splinting, no tachypnea, Breath sounds: are clear throughout, no decreased breath sounds, no stridor, no wheezing. 22:12 Abdomen/GI: Inspection: abdomen appears normal, Palpation: abdomen is soft and non-tender, in all quadrants. 22:12 Back: pain, is absent, ROM is normal. 22:12 Skin: cellulitis, that is moderate, irregular, on the lateral aspect of left calf, Wound recheck: Abscess: the wound has worsened, more erythema, more pain, the packing is in place. Vital Signs: 21:41 BP 148 / 77; Pulse 68; Resp 17; Temp 98.2; Pulse Ox 98% on R/A; Weight 113.4 kg; Height aj 6 ft. 2 in. (187.96 cm); 21:59 BP 158 / 92; Pulse 70; Resp 18; Pulse Ox 97% on R/A; ea 22:55 BP 138 / 76; Pulse 76; Resp 18; Pulse Ox 96% on R/A; ea 23:45 BP 140 / 80; Pulse 72; Resp 18; Pulse Ox 98% ; ea 09/30 01:30 BP 138 / 73; Pulse 70; Resp 18; Pulse Ox 98% ; ea 03:30 BP 142 / 68; Pulse 68; Resp 18; Temp 98(O); Pulse Ox 98% on R/A; Pain 0/10; ea 12/05 21:41 Body Mass Index 32.10 (113.40 kg, 187.96 cm) aj MDM: 12/05 21:46 Patient medically screened. 23:00 Differential diagnosis: sepsis, MRSA, fasciitis. 12/06 00:19 ED course: VSS. DR Lawson requests CT scan of left lower extremity before patient is to be admitted. 02:55 Data reviewed: vital signs, nurses notes, lab test result(s), radiologic studies, CT cp scan, and as a result, I will admit patient. 02:55 Counseling: I had a detailed discussion with the patient and/or guardian regarding: the historical points, exam findings, and any diagnostic results supporting the discharge/admit diagnosis, lab results, radiology results, the need for further work-up and treatment in the hospital. Response to treatment: the patient's symptoms have mildly improved after treatment. 12/05 22:11 Order name: Basic Metabolic Panel; Complete Time: 23:32 12/05 22:11 Order name: CBC with Diff; Complete Time: 22:46 12/05 22:46 Interpretation: Reviewed. 12/05 22:11 Order name: LFT's; Complete Time: 23:32 12/05 22:11 Order name: Magnesium; Complete Time: 23:32 12/05 22:11 Order name: PT-INR; Complete Time: 23:16 12/05 22:46 Order name: Blood Culture Adult (2) 12/05 22:11 Order name: EKG; Complete Time: 22:12 12/05 23:13 Order name: Lower Extremity W/ Cont [facility] 12/06 03:02 Order name: CONS Physician Consult [facility] 12/05 21:55 Order name: Wound dressing; Complete Time: 22:07 12/05 22:11 Order name: Cardiac monitoring; Complete Time: 23:08 12/05 22:11 Order name: EKG - Nurse/Tech; Complete Time: 23:08 12/05 22:11 Order name: IV Saline Lock; Complete Time: 22:21 cp 12/05 22:11 Order name: Labs collected and sent; Complete Time: 22:21 cp 12/05 22:11 Order name: O2 Per Protocol; Complete Time: 22:21 cp 12/05 22:11 Order name: O2 Sat Monitoring; Complete Time: 22:21 cp 12/05 22:36 Order name: Wound dressing: outline area of erythema; Complete Time: 22:52 cp Administered Medications: 12/05 22:32 Drug: fentaNYL (PF) 25 mcg Route: IVP; Site: right antecubital; ea 12/06 00:10 Follow up: Response: No adverse reaction; Marked relief of symptoms; Pain is decreased ea 12/05 22:33 Drug: NS 0.9% 1000 ml Route: IV; Rate: 1 bolus; Site: right antecubital; ea 12/06 00:30 Follow up: Response: No adverse reaction; IV Status: Completed infusion; IV Intake: ea 1000ml 00:32 Drug: vancoMYCIN 1 grams Route: IVPB; Infused Over: 2 hrs; Site: right antecubital; tl2 03:08 Follow up: Response: No adverse reaction; IV Status: Completed infusion ea 00:33 Drug: NS 0.9% 1000 ml Route: IV; Rate: 125 ml/hr; Site: right antecubital; tl2 03:23 Follow up: Response: No adverse reaction; IV Status: Infusion continued upon transfer ea 00:41 Drug: Insulin Regular Human 10 units {Co-Signature: ea (Marian Carver RN).} Route: IVP; tl2 Site: right antecubital; 02:00 Follow up: Response: No adverse reaction; Blood sugar is lowered; Blood sugar is ea lowered 220 Disposition: 07:19 Co-signature as Attending Physician, Bharat Aaron MD I agree with the assessment and rj plan of care. Disposition: 12/06/17 02:57 Hospitalization ordered by Gregory Lawson for Observation. Preliminary diagnosis is Cellulitis of left lower limb. - Bed requested for Telemetry/MedSurg (observation). - Status is Observation. ea - Condition is Stable. - Problem is new. - Symptoms have improved. UTI on Admission? No Signatures: Dispatcher [employer] Radha Zamudio RN RN mw Myers, Amanda, RN RN aj Anderson, Corey, MD MD cha Page, Bharat, PA PA cp Hannah Abad, RN RN tl2 Marian Carver RN RN ea Elena Antunez RN ea Corrections: (The following items were deleted from the chart) 00:17 00:07 Hospitalization Ordered by Gregory Lawson MD for Observation. Preliminary cp diagnosis is Cellulitis of left lower limb. Bed requested for Telemetry/MedSurg (observation). Status is Observation. Condition is Stable. Problem is new. Symptoms have worsened. UTI on Admission? No. cp 03:19 02:57 Hospitalization Ordered by Gregory Lawson MD for Observation. Preliminary mw diagnosis is Cellulitis of left lower limb. Bed requested for Telemetry/MedSurg (observation). Status is Observation. Condition is Stable. Problem is new. Symptoms have improved. UTI on Admission? No. cp 03:58 03:19 12/06/2017 02:57 Hospitalization Ordered by Gregory Lawson MD for Observation. ea Preliminary diagnosis is Cellulitis of left lower limb. Bed requested for Telemetry/MedSurg (observation). Status is Observation. Condition is Stable. Problem is new. Symptoms have improved. UTI on Admission? No. mw
[2017-12-06] MEDS ORDERED: VANCOMYCIN 1 GM/VIAL ONE ×3 (00:13→04:23)
[2017-12-06] MEDS ORDERED: NA CHLORIDE 0.9% 500 ML ONE ×2 (00:13→00:29)
[2017-12-06] MEDS ORDERED: INSULIN -REGULAR HUMAN 50 UNIT/0.5 ML ML ONE ×2 (00:13→00:29)
[2017-12-06] MEDS ORDERED: NA CHLORIDE 0.9% 1,000 ML ONE ×2 (00:13→00:29)
[2017-12-06] MEDS ORDERED: GLUCAGON 1 MG/VIAL IM PRN (03:00)
[2017-12-06] MEDS ORDERED: D50W 25 GM/50 ML SYRINGE IV PRN (03:00)
[2017-12-06] MEDS ORDERED: ACETAMINOPHEN 500 MG TAB PO PRN (03:09)
[2017-12-06] MEDS ORDERED: ONDANSETRON 4 MG/2 ML VIAL IV PRN (03:09)
[2017-12-06] MEDS ORDERED: VANCOMYCIN/NS 1 gm 1 GM/250 ML BAG IVPB ONE (03:30)
[2017-12-06] MEDS: NA CHLORIDE 0.9% 1,000 ML IV SCH ×2 (04:00→14:00)
[2017-12-06] MEDS ORDERED: NA CHLORIDE 0.9% 250 ML ONE (04:24)
[2017-12-06 04:33] VITALS: BMI 33.2
[2017-12-06] MEDS: HYDROMORPHONE HCL 1 MG/ML INJ IV PRN ×2 (04:45→09:04)
[2017-12-06] MEDS: AMPICILLIN/SULBACT 3 GM in NA CHLORIDE 0.9% 100 ML IVPB SCH ×2 (06:00→12:00)
[2017-12-06 06:04] LABS: Absolute Lymphocytes (CBC) 2.1 K/uL (0.7-4.9); Absolute Monocytes 0.5 K/uL (0.1-1.3); Absolute Neutrophil 1.5 K/uL (1.8-8.0); Basophils % 0.9 % (0-1.3); Eosinophils % 1.4 % (0-4.4); Hematocrit 36.6 % (39.6-49.0); Lymphocytes % 50.2 % (15.3-44.8); MCH 31.6 pg (27.0-35.0); MCV 89.4 fL (80-100); MPV 9.2 fL (7.6-11.3); Monocytes % 11.9 % (3.3-12.3)
[2017-12-06] MEDS ORDERED: AMPICILLIN/SULBACTAM 3GM/VIAL ONE (06:33)
[2017-12-06 06:36] LABS: BUN Blood Urea Nitrogen 14 mg/dL (7-18); Bicarbonate 24 mmol/L (21-32); Glucose Level 258 mg/dL (74-106); Sodium Level 138 mmol/L (136-145)
[2017-12-06] MEDS ORDERED: NA CHLORIDE 0.9% 100 ML IV ONE (06:37)
[2017-12-06 06:39] LABS: Protime INR 0.89
--- NOTE | 2017-12-06 06:42 | EKG ---
Test Date: 2017-12-05 Test Time: 23:04:53 Caramel Candy Maker: PIERRE MEASUREMENT RESULTS: Intervals: Rate: 81 SD: 158 QRSD: 94 QT: 380 QTc: 441 Adah: P: 33 SD: 158 QRS: -15 T: 2 INTERPRETIVE STATEMENTS: Normal sinus rhythm Normal ECG No previous ECG available for comparison Electronically Signed On 12-06-17 06:41:13 CDT by Ric Rosario
[2017-12-06] MEDS ORDERED: INFLUENZA VACCINE (for 3y+) 0.5 ML DOSE IMVAC ONE (08:00)
[2017-12-06] MEDS: INSULIN -REGULAR HUMAN 50 UNIT/0.5 ML ML SQ SCH ×4 (09:04→16:30)
[2017-12-06 09:11] LABS: Urine Appearance CLEAR; Urine Bilirubin NEGATIVE (NEG); Urine Blood NEGATIVE (NEG); Urine Color YELLOW; Urine Glucose 3+ (NEG); Urine Protein NEGATIVE (NEG); Urine Specific Gravity >=1.030 (1.005-1.030)
[2017-12-06 09:14] LABS: Urine Microscopic Reflex NO UMIC
[2017-12-06 10:18] VITALS: O2SAT 96
--- NOTE | 2017-12-06 10:55 | P.HP ---
Certification for Inpatient Patient admitted to: Observation With expected LOS: <2 Midnights Patient will require the following post-hospital care: None Practitioner: I am a practitioner with admitting privileges, knowledge of patient current condition, hospital course, and medical plan of care. Services: Services provided to patient in accordance with Admission requirements found in Title 42 Section 412.3 of the Code of Federal Regulations Patient History Date of Service: 12/06/17 Reason for admission: Left lower extremity cellulitis History of Present Illness: Patient is a 42-year-old gentleman who came into the hospital with complaints of cellulitis of the left lower extremity. He was in the emergency room a couple of days ago. The cellulitis worsened. Into the ER for further evaluation. In the emergency room they did an incision over the area of greatest fluctuance. There was no purulent drainage ditch. Patient's CT with no abscess. Patient just appears to have a cellulitis of the left lower extremity. There is no significant erythema noted. There is a packing in place. Patient would possibly be stable for discharge in the morning. Allergies morphine Allergy (Severe, Verified 12/06/17 04:09) Itching Home Medications: Metformin ER [Glucophage ER] 1,000 mg PO BID 12/06/17 - Past Medical/Surgical History Has patient received pneumonia vaccine in the past: Yes Diabetic: Yes -: Type 2 diabetes -: Appy -: Rt ankle sx x2 -: Rt shoulder sx -: Rt clavicle repair -: Rt hip sx - Family History Father Medical History: Diabetes Mother Medical History: Hypertension, Lung disease - Social History Smoking Status: Never smoker Alcohol use: Yes CD- Drugs: No Caffeine use: Yes Place of Residence: Home Review of Systems 10-point ROS is otherwise unremarkable Physical Examination - Vital Signs Temperature: 97.5 F Blood Pressure: 121/74 Pulse: 63 Respirations: 17 Pulse Ox (%): 96 - Physical Exam General: Alert, In no apparent distress, Oriented x3 HEENT: Atraumatic, PERRLA, Mucous membr. moist/pink, EOMI, Sclerae nonicteric Neck: Supple, 2+ carotid pulse no bruit, No LAD, Without JVD or thyroid abnormality Respiratory: Clear to auscultation bilaterally, Normal air movement Cardiovascular: Regular rate/rhythm, Normal S1 S2, No murmurs Gastrointestinal: Normal bowel sounds, Soft and benign, Non-distended, No tenderness Musculoskeletal: No tenderness Integumentary: No rashes, Tenderness/swelling, Erythema Neurological: Normal gait, Normal speech, Normal strength at 5/5 x4 extr, Normal tone, Sensation intact, Cranial nerves 3-12 intact, Normal affect Lymphatics: No axilla or inguinal lymphadenopathy - Studies Laboratory Data (last 24 hrs) 12/05/17 22:20: PT 10.0, INR 0.85 12/05/17 22:20: WBC 4.8 D, Hgb 14.3, Hct 41.3, Plt Count 232 12/05/17 22:20: Sodium 135 L, Potassium 4.3, BUN 13, Creatinine 1.10, Glucose 369 H, Magnesium 1.9, Total Bilirubin 0.4, AST 19, ALT 34, Alkaline Phosphatase 86 Assessment & Plan - Problems (Diagnosis) (1) Cellulitis of left lower extremity Current Visit: Yes Status: Acute (2) Type 2 diabetes mellitus Current Visit: Yes Status: Acute - Plan 1. Continue with IV antibiotic 2. Continue with local wound care 3. Surgical consultation 4. Gentle IV hydration 5. Monitor CBC 6. Strict blood sugar monitoring 7. Pain control 8. GI and DVT prophylaxis Discharge Plan: Home Plan to discharge in: 48 Hours - Advance Directives Does patient have a Living Will: No Does patient have a Durable POA for Healthcare: No - Code Status/Comfort Care Code Status Assessed: Yes Code Status: Full Code Critical Care: No Time Spent Managing PTS Care (In Minutes): 50
--- NOTE | 2017-12-06 12:23 | RAD REPORT ---
EXAM DESCRIPTION: CT - Lower Extremity W/ Cont - 12/06/2017 7:04 am CLINICAL HISTORY: pain COMPARISON: No comparisons FINDINGS: No acute fracture, dislocation or bony destruction seen. Soft tissue swelling is seen medially involving the leg and ankle. Reticulation of the underlying fat is present. No focal fluid collection to indicate abscess. No hematoma detected. No pathologic post-contrast enhancement. All CT scans are performed using dose optimization technique as appropriate and may include automated exposure control or mA/KV adjustment according to patient size. IMPRESSION: No acute bony abnormality detected.
--- NOTE | 2017-12-06 14:09 | CON ---
Date of Consultation: 12/06/2017 Reason: Infection of left leg. History Of Present Illness: The patient is a 42-year-old gentleman, who states that he had some sort of a bite on his left leg and developed an infection. At work, they started him on Keflex, however, it became worse. He came to the emergency room on and he had abscess there, and small inci darrell and drainage was performed. Cultures were done, and he came back yesterday for wound check and it reveals still with moderate redness and swelling, therefore he was admitted for IV antibiotics. N o fever or chills. No groin lymphadenopathy. No sore throat, runny nose, cough, headaches, or dizzi ness. No chest pain. Review of Systems: Otherwise unremarkable. Past Medical History: Significant for type 2 diabetes. Past Surgical History: Appendectomy and shoulder surgery. Allergies: NO ALLERGIES. Social History: He does not smoke. Drinks couple of beers a day, has been counseled. Family History: Noncontributory. Physical Examination: Vital Signs: Stable. He is currently afebrile. General: He is awake, alert, and oriented x3. Head and neck: Cranial nerves 2 through 12 grossly within normal limits. No neck masses. No JVD. Throat clear. Neck is supple. Chest: Clear. Heart: S1, S2. Abdomen: Soft. Extremities: Neurovascularly intact. Left posterior leg in the calf area, there is approximately a 4 x 4 cm area of erythema, edema, induration. There is no fluctuance. There is approximately a 1.5 cm wound with no purulence, but minimal serous drainage. It is tender, warm, and red. Laboratory Data: Cultures done on reveals Staph aureus and sensitivities reviewed, and he i s on the appropriate antibiotics at this time, and white count is normal. Chemistry reviewed. Sugar was elevated on admission at 369, currently is 231. Assessment: Left leg cellulitis, infected wound. Recommendations: Continue IV antibiotics for another day. Wet-to-dry normal saline dressing changes daily, and tomorrow the patient can be discharged home on the appropriate oral antibiotics based on sensitivities. He can follow up with me in 1 to 2 weeks. BRIAN/ELSA Voice ID: [id number] Report ID: [id number]
[2017-12-06] MEDS ORDERED: VANCOMYCIN 2 GM in NA CHLORIDE 0.9% 500 ML IVPB SCH (15:00)
[2017-12-06] MEDS ORDERED: ENOXAPARIN 30 MG/0.3 ML SQ SCH (17:00)
[2017-12-06 17:42] VITALS: BP 136/86; TEMP 97.7
== END 2017-12-06 17:02 | disposition home or self-care (01) ==
LOC: ER 21:33 → ERHOLD 12-06 03:08 → 4TH 12-06 03:24
PROVIDERS: ADMIT Hospitalist; ATTEND Hospitalist
DX: L03.116 Cellulitis of left lower limb (principal); B95.61 Methicillin susceptible Staphylococcus aureus infection as the cause of diseases classified elsewhere; E11.9 Type 2 diabetes mellitus without complications
CPT/HCPCS: 36415; 73701; 80048; 80076; 81003; 82962; 83735; 85025; 85610; 85730; 87040; 93005; 96361; 96365; 96366; 96375; 99285; G0378; J0295; J1170; J3010; J3370; J7030; Q9967